=== PATIENT | male | born 1990 | race Caucasian/White ===

== ENCOUNTER 2021-11-28 06:22 | Emergency (ER) | payer SELFPAY ==
[2021-11-28] MEDS ORDERED: Lidocaine 1% 5 ML VIAL INJECT ONE (06:27)
[2021-11-28] MEDS ORDERED: Diphtheria,Pertussis(Acell),Tetanus Vaccine 0.5 ML Syringe IM ONE (06:30)
== END 2021-11-28 07:31 | disposition home or self-care (01) ==
LOC: MW.ED 06:22
DX: S91.311A Laceration without foreign body, right foot, initial encounter (principal); Z23 Encounter for immunization; W25.XXXA Contact with sharp glass, initial encounter
CPT/HCPCS: 12001; 73630-26-RT; 73630-RT; 90471; 90715; 99282; 99283-25

== ENCOUNTER 2022-05-19 02:27 | Emergency (ER) | payer OTHER | END 2022-05-19 03:49 | disposition home or self-care (01) | LOC: MW.ED 02:27 | DX: S82.62XA Displaced fracture of lateral malleolus of left fibula, initial encounter for closed fracture (principal); I10 Essential (primary) hypertension; W00.9XXA Unspecified fall due to ice and snow, initial encounter | CPT/HCPCS: 29515; 73610-26-LT; 73610-LT; 99283-25 ==

== ENCOUNTER 2022-10-26 08:46 | Day surgery (SDC) | payer OTHER ==
[~2022-10-26 08:46] MED LIST: Albuterol 0.083% 2.5 MG/3 ML Neb Soln NEB PRN; HYDROmorphone 1 MG/ML Syringe IVPUSH PRN; Lactated Ringers 1,000 ML IV SCH; Metoclopramide 10 MG/2 ML SDV IVPUSH PRN; Morphine 2 MG/ML SYRINGE IVPUSH PRN; Naloxone 0.4 MG/ML SDV IVPUSH PRN; Ondansetron 4 MG/2 ML SDV IVPUSH PRN; droPERidol 5 MG/2 ML SDV IVPUSH PRN; fentaNYL 50 MCG/ML SDV IVPUSH PRN
[2022-10-26] MEDS ORDERED: Ropivacaine 0.5% 5 MG/ML 30 ML SDV ONE (09:35)
[2022-10-26] MEDS ORDERED: fentaNYL 100 MCG/2 ML SDV ONE ×2 (09:45→10:40)
[2022-10-26] MEDS ORDERED: Midazolam 1 MG/ML 2 ML SDV ONE (09:45)
[2022-10-26] MEDS ORDERED: Bupivacaine 25%/EPINEPHrine/PF 30 ML ONE (10:04)
[2022-10-26] MEDS ORDERED: Propofol 200 MG/20 ML SDV ONE ×2 (10:23→12:02)
[2022-10-26] MEDS ORDERED: Morphine Sulfate 10mg/ml SDV ONE (10:40)
[2022-10-26] MEDS ORDERED: ceFAZolin 1 GM Vial ONE (10:51)
[2022-10-26] MEDS ORDERED: ceFAZolin 2 GM Vial ONE (10:51)
[2022-10-26] MEDS ORDERED: Metoprolol Tartrate 5 MG/5 ML SDV ONE (10:51)
[2022-10-26] MEDS ORDERED: Ketorolac 30 MG/ML SDV ONE (11:03)
[2022-10-26] MEDS ORDERED: Ketamine 500 mg/10 ML MDV ONE (11:03)
[2022-10-26] MEDS ORDERED: Ondansetron 4 MG/2 ML SDV ONE (11:54)
[2022-10-26] MEDS ORDERED: Labetalol 100 MG/20 ML MDV ONE (11:57)
[2022-10-26] MEDS ORDERED: propofoL 0 ML ONE (12:02)
== END 2022-10-26 14:40 | disposition home or self-care (01) ==
LOC: MW.SDS 08:46
PROVIDERS: ATTEND Orthopaedic Surgery
DX: S82.62XA Displaced fracture of lateral malleolus of left fibula, initial encounter for closed fracture (principal); F17.210 Nicotine dependence, cigarettes, uncomplicated; I10 Essential (primary) hypertension; E66.9 Obesity, unspecified; F41.9 Anxiety disorder, unspecified; F32.A Depression, unspecified; Z79.899 Other long term (current) drug therapy; Z68.42 Body mass index [BMI] 45.0-49.9, adult; X58.XXXA Exposure to other specified factors, initial encounter
CPT/HCPCS: 27792; 64445; J0131; J0690; J1885; J2250; J2270; J2405; J2704; J2795; J3010; J3490; J7120